=== PATIENT | male | born 1955 ===

== ENCOUNTER 2018-06-09 13:28 | Emergency (ER) | payer BC ==
[2018-06-09 13:28] VITALS: BMI 36.5
[2018-06-09 15:34] LABS: BASO # 0.1 K/uL (0.0-0.2); BASO % 0.3 % (0.0-2.0); EOS # 0.3 K/uL (0.0-0.7); EOS % 1.6 % (0.0-4.0); HEMOGLOBIN 12.7 g/dL (12.0-18.0); LYMPH # 0.8 K/uL (1.0-4.3); LYMPH % 5.1 % (20.0-40.0); MEAN CELL VOLUME 69.3 fl (80.0-94.0); MEAN CORPUSCULAR HEMOGLOBIN 21.1 pg (27.0-31.0); MEAN CORPUSCULAR HGB CONC 30.4 g/dL (33.0-37.0); MEAN PLATELET VOLUME 10.1 fl (7.2-11.7); MONO # 0.5 K/uL (0.0-0.8); MONO % 3.1 % (0.0-10.0); NEUT # 14.3 K/uL (1.8-7.0); NEUT % 89.9 % (50.0-75.0); NRBC % 0.1 % (0.0-0.0); PLATELET COUNT 202 K/uL (130-400); RBC 6.01 Mil/uL (4.40-5.90); RED CELL DISTRIBUTION WIDTH 20.8 % (11.5-14.5); WHITE BLOOD COUNT 15.9 K/uL (4.8-10.8)
[2018-06-09 15:44] LABS: INR 1.3; PROTHROMBIN TIME 14.1 Seconds (9.8-13.1)
[2018-06-09 15:47] LABS: PARTIAL THROMBOPLASTIN TIME 30.7 Seconds (25.6-37.1)
[2018-06-09 15:48] LABS: ALB/GLOB RATIO 1.3 (1.0-2.1); ALBUMIN 3.8 g/dL (3.5-5.0); ALT/SGPT 84 U/L (21-72); AST/SGOT 65 U/L (17-59); BLOOD UREA NITROGEN 15 mg/dl (9-20); CALCIUM 9.3 mg/dL (8.4-10.2); GFR NON-AFRICAN AMERICAN > 60
[2018-06-09 16:54] VITALS: TEMP 98.2
--- NOTE | 2018-06-09 16:58 | ED PDOC ---
Syncope/Near Syncope/Dizziness Time Seen by Provider: 06/09/18 14:33 Chief Complaint (Nursing): Dizziness/Lightheaded Chief Complaint (Provider): Dizziness, nausea and near syncope History Per: Patient History/Exam Limitations: no limitations Onset/Duration Of Symptoms: Mins Current Symptoms Are (Timing): Better Fall Associated With With Symptoms: No Additional Complaint(s): Sandro Soto is a 63 year old male, with a past medical history of HTN and Type II DM, who presents to the emergency department stating this morning while going up the stairs he experienced a brief episode of dizziness, nausea, and near-syncope. Patient states episode was short-lived and resolved within seconds. Patient has felt completely normal since incident occurred but called PMD out of concern who recommended ER visit for evaluation. He did not take any medications prior to arrival. Patient has no complaints at present but does report having a dry cough for the last x3 weeks. Denies fever, chills, SOB, headache, vomiting, diarrhea, rash, visual changes, jaw/arm pain, diaphoresis, orthopnea, rash. PMD: Andreea Morris Past Medical History Reviewed: Historical Data, Nursing Documentation, Vital Signs Vital Signs: Last Vital Signs Temp 98.2 F 06/09/18 16:53 Pulse 99 H 06/09/18 16:53 Resp 16 06/09/18 16:53 BP 137/78 06/09/18 13:38 Pulse Ox 97 06/09/18 16:53 - Medical History PMH: Diabetes (Type II), HTN - Surgical History Other surgeries: Aortic valve replacement - Family History Family History: States: Unknown Family Hx - Social History Current smoker - smoking cessation education provided: No Alcohol: Social Drugs: Denies - Home Medications Home Medications: Ambulatory Orders Medication Instructions Recorded Hydrochlorothiazide [HCTZ] 25 mg PO DAILY 05/08/15 RX: Lovastatin 10 mg PO DAILY 05/08/15 amLODIPine [Norvasc] 5 mg PO DAILY 05/08/15 Sitagliptin Phos/Metformin HCl 1 each PO BID 11/12/15 [Janumet 50-1,000 mg Tablet] DiphenhydrAMINE [Benadryl] 10 mg PO PRN PRN 01/21/16 Benzonatate [Tessalon Perles] 100 mg PO TID PRN #21 sgl 06/09/18 - Allergies Allergies/Adverse Reactions: Allergies Allergy/AdvReac Type Severity Reaction Status Date / Time No Known Allergies Allergy Verified 04/10/18 16:40 Review of Systems ROS Statement: Except As Marked, All Systems Reviewed And Found Negative Respiratory: Positive for: Cough (dry ) Gastrointestinal: Positive for: Nausea (resolved) Neurological: Positive for: Dizziness (resolved) Physical Exam - Reviewed Nursing Documentation Reviewed: Yes Vital Signs Reviewed: Yes - Physical Exam Comments: GENERAL APPEARANCE: Patient is awake, alert, oriented x 3, in no acute distress. Resting comfortably, on cell phone. SKIN: Warm, dry; (-) cyanosis; (-) rash. HEAD: (-) scalp swelling or tenderness, (-) temporal artery tenderness. EYES: (-) conjunctival pallor, (-) scleral icterus. ENMT: (-) sinus tenderness; mucous membranes are moist. Airway patent, (-) stridor. NECK: Supple, FROM (-) tenderness, (-) stiffness CHEST AND RESPIRATORY: (-) accessory muscle use (-) rales, (-) rhonchi, (-) wheezes; breath sounds equal bilaterally. Respirations even and nonlabored. HEART AND CARDIOVASCULAR: (-) irregularity ABDOMEN AND GI: Soft; (-) tenderness (-) guarding (-) distention (-) CVA tenderness. EXTREMITIES: (-) deformity. NEURO AND PSYCH: Mental status as above. manager photo: Grossly intact. Pupils equal and reactive; EOMI and painless; (-) facial asymmetry; tongue and uvula midline. Strength symmetric. Gait: steady. Speech: clear. - Laboratory Results Result Diagrams: 06/09/18 15:29 06/09/18 15:29 - ECG O2 Sat by Pulse Oximetry: 97 (RA) Pulse Ox Interpretation: Normal Medical Decision Making Medical Decision Making: Time: 14:30 Initial Impression: Near syncope, Cough Initial Plan: --EKG --CMP --Troponin I --CBC w/ differential --PTT --PT --Chest two views (PA/LAT) [RAD] --Glucose, POC --Reevaluation EKG: Sinus tachy @ 101 bpm. Occasional PVCs, QTc 474, No ST elevation. 1600 Labs reviewed. Mild leukocytosis with neutrophil shift. Slight elevations of LFTs. 1655 Repeate HR: 99 CXR reviewed Date of service: 06/09/2018 HISTORY: cough COMPARISON: No prior. TECHNIQUE: Chest PA and lateral FINDINGS: LUNGS: No active pulmonary disease. PLEURA: No significant pleural effusion identified. No pneumothorax apparent. CARDIOVASCULAR: Normal heart size. Status post aortic valve replacement. Sternotomy wires noted. No congestive change. OSSEOUS STRUCTURES: No significant abnormalities. VISUALIZED UPPER ABDOMEN: Normal. OTHER FINDINGS: None. IMPRESSION: No active disease. Consult placed to family practice resident. 17:15 Spoke with family practice resident, Dr. Aguirre, who states that patient has an upcoming appointment on Tuesday with Dr. Morris and can follow up as planned. 1730 Repeat HR: 93 On re-evaluation, patient offers no complaints. On exam, patient remains AAOx3, in no acute distress. Lungs CTA, cardiac RRR, abdomen soft, nontender, repeat neuro exam shows no focal findings. Gait steady in ED without assistance. Vitals stable. Lab/Diagnostic results d/w with the patient in great detail. Diagnosis of near syncope, cough d/w patient. Based on history, exam, and diagnostic results, plan will be for outpatient follow up with Dr Morris as scheduled. Patient instructed to follow up with PMD / referral provided / the clinic in 1-2 days without fail. Advised to take medication as prescribed. Return to the emergency room at any time for any new or worsening symptoms. Patient states he agrees with and understandings discharge instructions. States that he agrees with the plan and disposition. Verbalized and repeated discharge instructions and plan. I have given the patient opportunity to ask any additional questions. Scribe Attestation: Documented by Benji Campa, acting as a scribe for Na Lie PA-C. Provider Scribe Attestation: All medical record entries made by the Scribe were at my direction and personally dictated by me. I have reviewed the chart and agree that the record accurately reflects my personal performance of the history, physical exam, medical decision making, and the department course for this patient. I have also personally directed, reviewed, and agree with the discharge instructions and disposition. Disposition - Clinical Impression Clinical Impression: Near syncope, Cough - Patient ED Disposition Is Patient to be Admitted: No Counseled Patient/Family Regarding: Studies Performed, Diagnosis, Need For Followup, Rx Given - Disposition Referrals: Andreea Morris MD [Family Provider] - Disposition: Routine/Home Disposition Time: 17:32 Condition: STABLE Additional Instructions: The emergency medical care you received today was directed towards your acute symptoms. If you were prescribed medication, please fill it at the pharmacy and take it as directed. It may take several days for your symptoms to resolve. Return to emergency department if your symptoms worsen, do not improve, or if you have any other problems. Please contact your doctor / referred provider / clinic in 2 days for further evaluation. The treatement in the emergency department cannot replace ongoing medical care by a primary doctor outside of the emergency department. Prescriptions: Benzonatate [Tessalon Perles] 100 mg PO TID PRN #21 sgl PRN Reason: Cough Instructions: Cough in Adults, Near Fainting Forms: [employer] (Portuguese) Print Language: DANISH - POA Present On Arrival: None Results - Lab Results Lab Results: 06/09/18 06/09/18 06/09/18 15:29 15:29 15:29 WBC 15.9 H RBC 6.01 H Hgb 12.7 Hct 41.6 MCV 69.3 L MCH 21.1 L MCHC 30.4 L RDW 20.8 H Plt Count 202 MPV 10.1 Neut % (Auto) 89.9 H Lymph % (Auto) 5.1 L Bryan % (Auto) 3.1 Eos % (Auto) 1.6 Baso % (Auto) 0.3 Neut # (Auto) 14.3 H Lymph # (Auto) 0.8 L Bryan # (Auto) 0.5 Eos # (Auto) 0.3 Baso # (Auto) 0.1 Neutrophils % (Manual) Pending Lymphocytes % (Manual) Pending Monocytes % (Manual) Pending Platelet Estimate Pending PT 14.1 H INR 1.3 APTT 30.7 Sodium 138 Potassium 4.0 Chloride 101 Carbon Dioxide 30 Anion Gap 11 BUN 15 Creatinine 0.8 Est GFR ( Amer) > 60 Est GFR (Non-Af Amer) > 60 POC Glucose (mg/dL) Random Glucose 196 H Calcium 9.3 Total Bilirubin 1.4 H AST 65 H D ALT 84 H D Alkaline Phosphatase 144 H Troponin I 0.0470 Total Protein 6.7 Albumin 3.8 Globulin 2.9 Albumin/Globulin Ratio 1.3 06/09/18 15:13 WBC RBC Hgb Hct MCV MCH MCHC RDW Plt Count MPV Neut % (Auto) Lymph % (Auto) Bryan % (Auto) Eos % (Auto) Baso % (Auto) Neut # (Auto) Lymph # (Auto) Bryan # (Auto) Eos # (Auto) Baso # (Auto) Neutrophils % (Manual) Lymphocytes % (Manual) Monocytes % (Manual) Platelet Estimate PT INR APTT Sodium Potassium Chloride Carbon Dioxide Anion Gap BUN Creatinine Est GFR ( Amer) Est GFR (Non-Af Amer) POC Glucose (mg/dL) 185 H Random Glucose Calcium Total Bilirubin AST ALT Alkaline Phosphatase Troponin I Total Protein Albumin Globulin Albumin/Globulin Ratio
[2018-06-09 18:06] VITALS: BP 137/82; PULSE 93; RESP 18
[2018-06-09 18:08] LABS: ANISOCYTOSIS SLIGHT; BANDS 4 % (0-2); EOSINOPHIL 2 % (0-7); HYPOCHROMIC SLIGHT; LYMPHOCYTE 3 % (20-50); MICROCYTOSIS SLIGHT; MONOCYTE 2 % (0-10); NEUTROPHIL 89 % (42-75); OVALOCYTES SLIGHT; PLATELET ESTIMATE NORMAL (NORMAL); POIKILOCYTOSIS SLIGHT; TOTAL CELLS COUNTED 100
[2018-06-09 20:58] VITALS: O2SAT 97
--- NOTE | 2018-06-10 09:32 | CARD ---
APPROVED REPORT Date of service: 06/09/2018 EKG Measurement Heart [id number] ID [id number] <Conclusion> Sinus tachycardia with premature supraventricular complexes Minimal voltage criteria for LVH, may be normal variant Borderline ECG
== END 2018-06-09 17:40 | disposition home or self-care (01) ==
LOC: H.ER 13:28
DX: R55 Syncope and collapse (principal); R05 Cough; E11.9 Type 2 diabetes mellitus without complications; D72.829 Elevated white blood cell count, unspecified; I10 Essential (primary) hypertension; Z95.2 Presence of prosthetic heart valve